=== PATIENT | male | born 1965 | race Caucasian/White ===

== ENCOUNTER 2020-05-29 17:17 | Emergency (ER) | payer OTHER, SELFPAY ==
[~2020-05-29] VITALS: Ht 188 cm; Wt 95.5 kg
[2020-05-29] MEDS ORDERED: THIAMINE 100 MG TABLET PO ONE (17:45)
[2020-05-29] MEDS ORDERED: FOLIC ACID 1 MG TABLET PO ONE (17:45)
[2020-05-29 18:00] LABS: BASOPHILS % (AUTO) 0.5 % (0.0-2.0); EOSINOPHILS % (AUTO) 0 % (1.0-6.0); HEMATOCRIT 40.4 % (41-53); LYMPHOCYTES % (AUTO) 20.4 % (22.0-44.0); MEAN CORPUSCULAR HEMOGLOBIN 32.7 pg (26.0-34.0); MEAN CORPUSCULAR HGB CONC 34.7 G/dL (31.0-37.0); MEAN CORPUSCULAR VOLUME 94 fL (80-100); MONOCYTES # (AUTO) 0.8 K/uL (0.1-1.0); MONOCYTES % (AUTO) 8.5 % (2.0-9.0); NEUTROPHILS # (AUTO) 6.8 K/uL (1.8-7.7); NEUTROPHILS % (AUTO) 70.6 % (40.0-70.0); PLATELET COUNT (AUTO) 274 K/uL (150-450); RED CELL DISTRIBUTION WIDTH 14.1 % (11.5-14.5)
[2020-05-29 18:08] LABS: ANION GAP 14 mmol/L (8-16); CALCIUM, TOTAL 9.4 mg/dL (8.8-10.5); CARBON DIOXIDE 24 mmol/L (22-29); CHLORIDE 104 mmol/L (98-107); CREATININE 1.33 mg/dL (0.60-1.30); GLOMERULAR FILTR. RATE CALC 56 mL/min (>60); GLUCOSE,RANDOM 115 mg/dL (70-110); POTASSIUM 3.9 mmol/L (3.5-5.1); SODIUM SERUM 142 mmol/L (136-145); UREA NITROGEN, BLOOD 19 mg/dL (7-18)
[2020-05-29 18:34] LABS: ALANINE AMINOTRANSFERASE 29 U/L (12-78); ALBUMIN 3.7 g/dL (3.4-5.0); ALKALINE PHOSPHATASE 80 U/L (46-116); ASPARTATE AMINOTRANSFERASE 27 U/L (15-37); BILIRUBIN,TOTAL 1.2 mg/dL (0.1-1.0); CREATINE KINASE, TOTAL ONLY 218 U/L (39-308); FREE T4 (FREE THYROXINE) 1.06 ng/dL (0.76-1.46); THYROID STIMULATING HORMONE 1.31 uIU/mL (0.36-3.74); TOTAL PROTEIN, SERUM 7.4 g/dL (6.4-8.2)
[2020-05-29 20:07] VITALS: BP 128/68
== END 2020-05-29 20:19 | disposition home or self-care (01) ==
LOC: EMS 17:22
DX: F10.20 Alcohol dependence, uncomplicated (principal); Y90.0 Blood alcohol level of less than 20 mg/100 ml
CPT/HCPCS: 36415; 70450; 80053; 82550; 84439; 84443; 85025; 99284; G0480

== ENCOUNTER 2020-05-30 11:36 | Emergency (ER) | payer OTHER ==
[~2020-05-30] VITALS: Ht 188 cm; Wt 77.3 kg
[2020-05-30] MEDS ORDERED: IBUPROFEN 400 MG TABLET PO ONE (12:30)
[2020-05-30 13:00] VITALS: BP 130/65
== END 2020-05-30 13:39 | disposition home or self-care (01) ==
LOC: EMS 11:41
DX: M79.671 Pain in right foot (principal); M79.672 Pain in left foot
CPT/HCPCS: Z7502; Z7610

== ENCOUNTER 2022-07-17 19:41 | Emergency (ER) | payer OTHER | END 2022-07-17 20:45 | disposition left against medical advice (07) | LOC: EMS 19:46 | DX: Z53.21 Procedure and treatment not carried out due to patient leaving prior to being seen by health care provider (principal) ==

== ENCOUNTER 2022-07-18 15:10 | Emergency (ER) | payer OTHER ==
[~2022-07-18] VITALS: Ht 182.9 cm; Wt 86.4 kg
[2022-07-18 16:09] LABS: BASOPHILS % (AUTO) 0.9 % (0.0-2.0); EOSINOPHILS % (AUTO) 0.9 % (1.0-6.0); HEMATOCRIT 45.3 % (41-53); HEMOGLOBIN 15.4 g/dL (13.5-17.5); LYMPHOCYTES # (AUTO) 5.2 K/uL (1.0-4.8); LYMPHOCYTES % (AUTO) 50.7 % (22.0-44.0); MEAN CORPUSCULAR VOLUME 91 fL (80-100); MONOCYTES # (AUTO) 0.6 K/uL (0.1-1.0); MONOCYTES % (AUTO) 5.7 % (2.0-9.0); NEUTROPHILS # (AUTO) 4.3 K/uL (1.8-7.7); NEUTROPHILS % (AUTO) 41.8 % (40.0-70.0); PLATELET COUNT (AUTO) 261 K/uL (150-450); RED BLOOD CELL COUNT(AUTO) 4.97 MIL/uL (4.50-5.90); RED CELL DISTRIBUTION WIDTH 14.4 % (11.5-14.5)
[2022-07-18 16:17] LABS: CALCIUM, TOTAL 9.6 mg/dL (8.8-10.5); CHLORIDE 101 mmol/L (98-107); CREATININE 1.08 mg/dL (0.60-1.30); GLUCOSE,RANDOM 106 mg/dL (70-110); POTASSIUM 3.5 mmol/L (3.5-5.1); UREA NITROGEN, BLOOD 14 mg/dL (7-18)
[2022-07-18 16:25] LABS: ALANINE AMINOTRANSFERASE 30 U/L (12-78); ALBUMIN 3.7 g/dL (3.4-5.0); ALKALINE PHOSPHATASE 89 U/L (46-116); ANION GAP 15 mmol/L (8-16); ASPARTATE AMINOTRANSFERASE 21 U/L (15-37); BILIRUBIN,TOTAL 0.5 mg/dL (0.1-1.0); CARBON DIOXIDE 23 mmol/L (22-29); CREATINE KINASE, TOTAL ONLY 67 U/L (39-308); SODIUM SERUM 139 mmol/L (136-145); TOTAL PROTEIN, SERUM 7.6 g/dL (6.4-8.2)
[2022-07-18 16:26] LABS: GLOMERULAR FILTR. RATE CALC > 60 mL/min (>60)
[2022-07-18 16:54] VITALS: BP 125/66
== END 2022-07-18 17:49 | disposition home or self-care (01) ==
LOC: EMS 15:12
DX: R53.1 Weakness (principal); T67.5XXA Heat exhaustion, unspecified, initial encounter; F10.20 Alcohol dependence, uncomplicated; Z59.00 Homelessness unspecified; X30.XXXA Exposure to excessive natural heat, initial encounter; Y93.89 Activity, other specified; Y92.89 Other specified places as the place of occurrence of the external cause; Y99.8 Other external cause status
CPT/HCPCS: 99284; 80053; 82550; 84484; 85025; 36415; 93005; G0480

== ENCOUNTER 2022-07-20 15:46 | Emergency (ER) | payer OTHER ==
[~2022-07-20] VITALS: Ht 185.4 cm; Wt 100.0 kg
[2022-07-20 18:01] VITALS: BP 142/85
== END 2022-07-20 18:03 | disposition home or self-care (01) ==
LOC: EMS 15:47
DX: M79.605 Pain in left leg (principal); M79.604 Pain in right leg; Z59.00 Homelessness unspecified
CPT/HCPCS: 99281; Z7502

== ENCOUNTER 2022-07-31 00:26 | Emergency (ER) | payer OTHER ==
[~2022-07-31] VITALS: Ht 185.4 cm; Wt 100.0 kg
[2022-07-31 00:46] VITALS: BP 117/71
[2022-07-31 02:00] LABS: APPEARANCE,URINE CLEAR (CLEAR); GLUCOSE, URINE (UA) NEGATIVE (NEGATIVE); KETONES,URINE TRACE mg/dL (NEGATIVE); LEUKOCYTE ESTERASE ,URINE NEGATIVE (NEGATIVE); NITRATE,URINE NEGATIVE (NEGATIVE); OCCULT BLOOD,URINE NEGATIVE (NEGATIVE); PH,URINE 5.5 (5.0-8.0); PROTEIN,URINE TRACE mg/dL (NEGATIVE); SPECIFIC GRAVITIY, URINE 1.028 (1.003-1.030)
[2022-07-31 02:01] LABS: BILIRUBIN,URINE SMALL (NEGATIVE)
[2022-08-01] MEDS ORDERED: POLY17PO PO (23:43)
== END 2022-07-31 04:22 | disposition left against medical advice (07) ==
LOC: EMS 00:27
DX: Z53.21 Procedure and treatment not carried out due to patient leaving prior to being seen by health care provider (principal)
CPT/HCPCS: 81003

== ENCOUNTER 2022-08-01 22:38 | Emergency (ER) | payer OTHER ==
[~2022-08-01] VITALS: Ht 180.3 cm; Wt 86.4 kg
[2022-08-01 23:36] VITALS: BP 127/80
[2022-08-01] MEDS ORDERED: POLY17PO PO (23:43)
== END 2022-08-02 00:02 | disposition home or self-care (01) ==
LOC: EMS 22:39
DX: K59.00 Constipation, unspecified (principal); F10.20 Alcohol dependence, uncomplicated; F17.210 Nicotine dependence, cigarettes, uncomplicated; F15.90 Other stimulant use, unspecified, uncomplicated
CPT/HCPCS: 99282; Z7502

== ENCOUNTER 2022-08-02 15:15 | Emergency (ER) | payer OTHER ==
[~2022-08-02] VITALS: Ht 177.8 cm; Wt 90.9 kg
[~2022-08-02 15:15] MED LIST: POLY17PO PO
[2022-08-02 15:20] VITALS: BP 152/81
== END 2022-08-02 20:00 | disposition left against medical advice (07) ==
LOC: EMS 15:17
DX: Z53.21 Procedure and treatment not carried out due to patient leaving prior to being seen by health care provider (principal)

== ENCOUNTER 2022-08-06 14:29 | Emergency (ER) | payer OTHER ==
[~2022-08-06] VITALS: Ht 183.5 cm; Wt 72.7 kg
[2022-08-06 17:56] VITALS: BP 115/79
== END 2022-08-06 17:59 | disposition home or self-care (01) ==
LOC: EMS 14:32
DX: K59.00 Constipation, unspecified (principal); F10.20 Alcohol dependence, uncomplicated; F17.210 Nicotine dependence, cigarettes, uncomplicated; F15.90 Other stimulant use, unspecified, uncomplicated; Z59.00 Homelessness unspecified
CPT/HCPCS: 99281; 99282; Z7502

== ENCOUNTER 2022-08-07 00:24 | Emergency (ER) | payer OTHER ==
[~2022-08-07] VITALS: Ht 188 cm; Wt 73.0 kg
[2022-08-07] MEDS ORDERED: PERMETHRIN 1% 60 ML LOTION TP ONE (01:00)
[2022-08-07] MEDS ORDERED: PERMETHRIN 5% 60 GM CREAM TP ONE (01:00)
[2022-08-07] MEDS ORDERED: DiphenhydrAMINE HCL 25 MG CAPSULE PO ONE (01:00)
[2022-08-07] MEDS ORDERED: IVERMECTIN 3 MG TABLET PO ONE (01:00)
[2022-08-07 03:20] VITALS: BP 141/77
== END 2022-08-07 03:47 | disposition home or self-care (01) ==
LOC: EMS 00:26
DX: B85.1 Pediculosis due to Pediculus humanus corporis (principal); Z59.00 Homelessness unspecified; F10.20 Alcohol dependence, uncomplicated; F17.210 Nicotine dependence, cigarettes, uncomplicated; F15.90 Other stimulant use, unspecified, uncomplicated
CPT/HCPCS: 99284; Z7502; Z7610